=== PATIENT | female | born 2000 | race Caucasian/White ===

== ENCOUNTER 2022-08-27 00:04 | Emergency (ER) | payer OTHER, BC ==
[~2022-08-27] VITALS: Ht 170.1 cm; Wt 61.3 kg
[2022-08-27] MEDS ORDERED: RT-ALBUINH INH (00:33)
--- NOTE | 2022-08-27 00:36 | ED General ---
General Chief Complaint: Laceration Stated Complaint: WC,ABD LAC Source of Information: Patient Exam Limitations: No Limitations History of Present Illness Date Seen by Provider: Aug 27, 2022 Time Seen by Provider: 00:10 Initial Comments 22-year-old female with no pertinent past medical history coming in due to concerns for a laceration on her abdomen. 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 She presented here shortly after. Her tetanus is up-to-date from when she was 19 years old. Otherwise denies any significant pain anywhere. Allergies and Home Medications Allergies Coded Allergies: No Known Drug Allergies (Unverified , 08/27/22) Patient Home Medication List Home Medication List Reviewed: Yes Review of Systems Review of Systems Constitutional: no symptoms reported EENTM: see HPI Respiratory: no symptoms reported Cardiovascular: no symptoms reported Gastrointestinal: no symptoms reported Genitourinary: no symptoms reported Skin: see HPI Past [id number] Hx Patient Social History Tobacco Use?: Yes Smoking Status: Never a Smoker Smokeless Tobacco Frequency: Current Everyday User Use of E-Cig and/or Vaping [place]: Never a User Substance use?: No Alcohol Use?: Yes Alcohol Frequency: Once in a while Pt feels they are or have been: No Immunizations Up To Date First/Initial COVID19 Vaccinat: Date? COVID19 Vaccine Primary Care Physician: Unknown by Patient Past Medical History Surgery/Hospitalization HX: Asthma Physical Exam Vital Signs Capillary Refill : Height, Weight, BMI Height: '" Weight: lbs. oz. kg; BMI Method: General Appearance: No Apparent Distress, WD/WN Eyes: Bilateral Eye Normal Inspection HEENT: PERRL/EOMI, Normal ENT Inspection, Pharynx Normal Neck: Full Range of Motion, Normal Inspection, Non Tender, Supple Respiratory: Chest Non Tender, Lungs Clear, Normal Breath Sounds, No Accessory Muscle Use, No Respiratory Distress Cardiovascular: Regular Rate, Rhythm, No Edema, Normal Peripheral Pulses Gastrointestinal: Normal Bowel Sounds, Non Tender, Soft; No Distended, No Guarding Back: Normal Inspection, No CVA Tenderness, No Vertebral Tenderness Extremity: Normal Capillary Refill, Normal Range of Motion, Non Tender, No Calf Tenderness, No Pedal Edema, Other (Multiple punctate wounds to the left arm wh ich did fully break skin, more superficial, superficial wound that is 1 cm to the abdomen, superficial, entire depth of wound visualized) Neurologic/Psychiatric: Alert, No Motor/Sensory Deficits, Normal Mood/Affect Skin: Normal Color, Warm/Dry Procedures/Interventions Wound Location: Trunk Other Wound Location Upper abdomen Wound Length (cm): 1 Wound's Depth, Shape: superficial Wound Explored: clean Irrigated w/ Saline (ccs): 250 Other Closure Supply: Steri Strip 1/2", Mastisol, Wound Adhesive Progress Patient tolerated the procedure well Progress/Results/Core Measures Suspected Sepsis SIRS Temperature: Pulse: Respiratory Rate: Blood Pressure / Mean: Results/Orders Vital Signs/I&O Capillary Refill : Progress Note : Progress Note 22-year-old female coming in due to a laceration to her abdomen. ABCs were intact and vitals were stable on presentation. Physical exam with multiple shards of aluminum and glass over her body. Tape was used to clean the shards around her eyes. Does not have any sensation like anything is in her eyes. Abdomen was cleaned, the entire depth of the wound was visualized. It is 1 cm across and superficial. I did use an ultrasound at [id number] just to evaluate and make sure there was not any tiny slivers that went into her abdomen. I am unable to visualize any foreign body beyond the depth of the skin. The area was cleaned, closed with glue as well as Steri-Strips with Mastisol. I believe the patient is stable for discharge with outpatient follow- up. She was sent home with strict return precautions. Departure Impression Primary Impression: Laceration of abdominal wall Qualified Codes: S31.119A - Laceration without foreign body of abdominal wall, unspecified quadrant without penetration into peritoneal cavity, initial encounter Disposition: 01 HOME, SELF-CARE Condition: Stable Departure-Patient Inst. Decision time for Depature: 00:40 Referrals: HANH LEDESMA APRN (PCP/Family) Primary Care Physician Patient Instructions: Laceration Repair With Glue ED Add. Discharge Instructions: Try to keep the area dry for at least the next 5 to 7 days. Try to keep the Steri-Strips on for the next 5 to 7 days as well. After that, you can peel them off or let them fall off naturally. Immediately go home, remove your clothes, taking care not to get anything in your eyes, and shower to get all of the shards off your body. Take Tylenol or ibuprofen as needed for pain. Work/School Note: Work Release Form Date Seen in the Emergency Department: Aug 27, 2022 Return to Work: Aug 28, 2022 Restrictions: No Restrictions BRITTANY NOVA MD Aug 27, 2022 00:36
[2022-08-27 00:42] VITALS: BP 127/86
== END 2022-08-27 00:42 | disposition home or self-care (01) ==
LOC: ER FS 00:06
DX: S31.119A Laceration without foreign body of abdominal wall, unspecified quadrant without penetration into peritoneal cavity, initial encounter (principal); F17.220 Nicotine dependence, chewing tobacco, uncomplicated; Z28.311 Partially vaccinated for COVID-19; W26.8XXA Contact with other sharp object(s), not elsewhere classified, initial encounter; Y92.59 Other trade areas as the place of occurrence of the external cause; Y99.0 Civilian activity done for income or pay
CPT/HCPCS: 12001